=== PATIENT | female | born 1985 | race Caucasian/White ===

== ENCOUNTER 2018-11-12 11:11 | Outpatient (CLI) | payer OTHER ==
[2018-11-12 11:28] VITALS: BP 113/62; PULSE 87; RESP 16; TEMP 97.4
--- NOTE | 2018-12-21 08:48 | P.MSEPDOC ---
Presenting Problems - Arrival Data Date of Arrival on Unit: 11/12/18 Time of Arrival on Unit: 11:11 Mode of Transport: Ambulatory - Complaint OB-Reason for Admission/Chief Complaint: NST Medical History - Information : 4 Para: 2 Term: 2 : 0 Abortions: Spontaneous or Elective: 1 Number of Living Children: 2 - Gestational Age Gestational Age by FAMILIA (wks/days): 40 Weeks and 6 Days Review of Systems - Review of Systems Constitutional: No problems Breast: No problems ENT: No problems Cardiovascular: No problems Respiratory: No problems Gastrointestinal: No problems Genitourinary: No problems Musculoskeletal: No problems Neurological: No problems Skin: No problems Vital Signs - Temperature Temperature: 97.4 F Temperature Source: Temporal Artery Scan - Pulse Right Brachial Pulse Rate: 87 Pulse Assessment Method: Automatic Cuff - Respirations Respiratory Rate: 16 Oxygen Delivery Method: Room Air O2 Sat by Pulse Oximetry: 99 - Blood Pressure Right Arm Blood Pressure: 113/62 Blood Pressure Mean: 79 Blood Pressure Source: Automatic Cuff Medical Screen Scoring (Pre) - Cervical Exam Dilation: Exam Deferred Effacement: Exam Deferred Membranes: Intact - Uterine Contractions Frequency: N/A Duration: N/A Intensity: N/A - Maternal Vital Signs Maternal Temperature: N/A Signs of Preeclampsia: N/A Maternal Respirations: N/A - Pain Assessment Pain Scale Used: Numeric (1 - 10) Pain Intensity: 0 - Assessment Baseline FHR: 130 Heart Rate - NICHD Category: Category I (Normal) = 0 NST: Reactive Position: N/A Station: N/A - Total Score Total Score (Pre): 0 - Level of Risk Level of Risk: Low (0-5) Physician Notification (Pre) - Notification Comment Comment: Routine NST for postdates Physician Notification (Post) - Physician Notified Physician Notified Date: 11/12/18 Physician Notified Time: 11:35 Physician/Practitioner Notified:: Judy New Order Received: Yes (discharge to home) - Notification Comment Comment: routine NST for post dates Disposition - Disposition OB Disposition: LDRP Suite Discharge Date: 11/12/18 Discharge Time: 11:36 I agree with the RN Medical Screening Exam: Yes Risk & Benefit of care provided described in d/c instruction: Yes Diagnosis: 40 WEEKS GESTATION OF
== END 2018-11-12 11:36 | disposition home or self-care (01) ==
LOC: FBPOP 11:11
PROVIDERS: ATTEND Obstetrics & Gynecology
DX: O26.893 Other specified pregnancy related conditions, third trimester (principal); Z3A.40 40 weeks gestation of pregnancy
CPT/HCPCS: 59025; G0463; 99213

== ENCOUNTER 2021-04-02 16:23 | Inpatient (IN) | payer OTHER ==
[2021-04-02] MEDS ORDERED: TERBUTALINE 1 MG/ML VIAL SQ PRN (16:51)
[2021-04-02] MEDS ORDERED: LACTATED RINGERS 1,000 ML IV ONE (16:51)
[2021-04-02 17:18] LABS: Basophils % (A) 0 %; Eosinophils # (A) 0.1 k/uL (0-0.7); Eosinophils % (A) 0 %; HCT 28.1 % (34.0-46.0); Lymphocytes # (A) 1.6 k/uL (1.0-4.8); Lymphocytes % (A) 8 %; MCH 31.9 pg (25.0-35.0); MCHC 35.5 g/dL (31.0-37.0); MCV 89.8 fL (80.0-100.0); Mean Platelet Volume 10.8; Monocytes # (A) 0.8 k/uL (0-1.0); Monocytes % (A) 4 %; Neutrophils # (A) 17.7 k/uL (1.3-7.7); Neutrophils % (A) 87 %; Platelet Count 145 k/uL (150-450); RBC 3.13 m/uL (3.80-5.40); RDW 13.5 % (11.5-15.5); WBC 20.3 k/uL (3.8-10.6)
[2021-04-02 17:52] LABS: Appearance,Urine Cloudy (Clear); Bilirubin,Urine Negative (Negative); Blood,Urine Large (Negative); Color,Urine Red; Glucose,Urine (UA) Negative (Negative); Ketones,Urine Negative (Negative); Leukocyte Esterase,Urine Moderate (Negative); Nitrite,Urine Negative (Negative); PH, Urine 7.5 (5.0-8.0); Protein,Urine 1+ (Negative); RBC,Urine >182 /hpf (0-5); Specific Gravity,Urine 1.017 (1.001-1.035); Squamous Epithelial Cell,Urine 5 /hpf (0-4); Urobilinogen,Urine <2.0 mg/dL (<2.0); WBC,Urine 27 /hpf (0-5)
[2021-04-02] MEDS ORDERED: cefTRIAXone 250 MG VIAL IM STA (17:58)
[2021-04-02] MEDS: LACTATED RINGERS 1,000 ML IV SCH (18:50)
[2021-04-02] MEDS: BETAMET ACET-BETAMETH SOD PHOS 6 MG/ML MDV IM SCH (18:57)
[2021-04-02 19:36] VITALS: BP 102/59; PULSE 86; RESP 16; TEMP 98.3
[2021-04-03] MEDS: LACTATED RINGERS 1,000 ML IV SCH ×3 (02:32→19:20)
--- NOTE | 2021-04-03 08:20 | P.HPOB ---
History of Present Illness H&P Date: 04/02/21 Chief Complaint: Contractions This is a 35-year-old 4 para 3003 woman who is admitted at 35 weeks gestation with worsening contractions. She presented to labor and delivery triage complaining of several hours of lower abdominal pain and possible contractions. She has no previous history of labor and has had an otherwise uncomplicated . During her evaluation in triage she is found to have an elevated white blood cell count as well as evidence of urinary tract infection on urinalysis. She was afebrile however there is some suspicion for possible developing pyelonephritis based on the elevated white blood cell count. She also was noted to be irregularly amrita on every 3-7 minutes. Her cervix is 3 cm dilated and she did have some bloody show as well. The decision was therefore made to admit her for observation for possible developing pyelonephritis and for labor. She did receive a single dose of Rocephin in triage as well as initial dose of betamethasone. Review of Systems All systems: negative Past Medical History Past Medical History: No Reported History History of Any Multi-Drug Resistant Organisms: None Reported Past Surgical History: No Surgical Hx Reported Additional Past Surgical History / Comment(s): Cervical cold knife cone biopsy 2009 Past Anesthesia/Blood Transfusion Reactions: No Reported Reaction Past Psychological History: No Psychological Hx Reported Smoking Status: Current every day smoker Past Alcohol Use History: None Reported Past Drug Use History: None Reported - Past Family History Mother Family Medical History: Cancer Medications and Allergies Home Medications Medication Instructions Recorded Confirmed Type Pnv,Calcium 72/Iron/Folic Acid 1 each PO DAILY 11/16/18 04/02/21 History [ Plus Tablet] Ferrous Sulfate [Iron] 325 mg PO DAILY 04/02/21 04/02/21 History Allergies Allergy/AdvReac Type Severity Reaction Status Date / Time No Known Allergies Allergy Verified 04/02/21 16:40 Exam Vital Signs Temp Pulse Resp BP Pulse Ox 04/02/21 19:33 98.3 F 86 16 102/59 98 04/02/21 16:31 97.5 F L 84 15 100/54 97 Intake and Output 04/02/21 04/03/21 04/03/21 22:59 06:59 14:59 Other: # Voids 1 2 Weight 56.699 kg Results Result Diagrams: 04/02/21 17:05 Abnormal Lab Results - Last 24 Hours (Table) 04/02/21 04/02/21 Range/Units 17:00 17:05 WBC 20.3 H (3.8-10.6) k/uL RBC 3.13 L (3.80-5.40) m/uL Hgb 10.0 L (11.4-16.0) gm/dL Hct 28.1 L (34.0-46.0) % Plt Count 145 L (150-450) k/uL Neutrophils # 17.7 H (1.3-7.7) k/uL Urine Appearance Cloudy H (Clear) Urine Protein 1+ H (Negative) Urine Blood Large H (Negative) Ur Leukocyte Esterase Moderate H (Negative) Urine RBC >182 H (0-5) /hpf Urine WBC 27 H (0-5) /hpf Ur Squamous Epith Cells 5 H (0-4) /hpf Microbiology - Last 24 Hours (Table) 04/02/21 17:00 Urine Culture - Preliminary Urine,Clean Catch Assessment and Plan (1) labor Current Visit: Yes Status: Acute Code(s): O60.00 - LABOR WITHOUT DELIVERY, UNSPECIFIED TRIMESTER SNOMED Code(s): 5429620 (2) Pyelonephritis affecting Current Visit: Yes Status: Acute Code(s): O23.00 - INFECTIONS OF KIDNEY IN , UNSPECIFIED TRIMESTER SNOMED Code(s): 59709861340836
--- NOTE | 2021-04-03 08:26 | P.PN ---
Subjective Progress Note Date: 04/03/21 Principal diagnosis: Contractions SHEENT and reports she slept well overnight. She has irregular and mild lower abdominal cramping. She denies dysuria. She denies heavy vaginal bleeding but does have some spotting with wiping. She has no blood in the urine otherwise. Good movement Objective - Vital Signs Vital signs: Vital Signs Temp 98.3 F 04/02/21 19:33 Pulse 86 04/02/21 19:33 Resp 16 04/02/21 19:33 BP 102/59 04/02/21 19:33 Pulse Ox 98 04/02/21 19:33 Intake & Output 04/02/21 04/03/21 04/03/21 18:59 06:59 18:59 Weight 56.699 kg 56.699 kg Other: # Voids 2 - Exam This is a comfortable appearing female who is visibly gravid. Abdomen is gravid, soft and nontender. No suprapubic pain or CVA tenderness. On pelvic examination the cervix is a tight 3 cm dilated, 70% effaced and the vertex is in the -2 station. There is a small clot on my glove following the exam but no active flow of blood or leakage of fluids. Review of heart rate tracing shows category 1 heart tones. She is amrita approximately every 10 minutes throughout the night. - Labs CBC & Chem 7: 04/02/21 17:05 Labs: Abnormal Lab Results - Last 24 Hours (Table) 04/02/21 04/02/21 Range/Units 17:00 17:05 WBC 20.3 H (3.8-10.6) k/uL RBC 3.13 L (3.80-5.40) m/uL Hgb 10.0 L (11.4-16.0) gm/dL Hct 28.1 L (34.0-46.0) % Plt Count 145 L (150-450) k/uL Neutrophils # 17.7 H (1.3-7.7) k/uL Urine Appearance Cloudy H (Clear) Urine Protein 1+ H (Negative) Urine Blood Large H (Negative) Ur Leukocyte Esterase Moderate H (Negative) Urine RBC >182 H (0-5) /hpf Urine WBC 27 H (0-5) /hpf Ur Squamous Epith Cells 5 H (0-4) /hpf Microbiology - Last 24 Hours (Table) 04/02/21 17:00 Urine Culture - Preliminary Urine,Clean Catch Assessment and Plan (1) labor Current Visit: Yes Status: Acute Code(s): O60.00 - LABOR WITHOUT DELIVERY, UNSPECIFIED TRIMESTER SNOMED Code(s): 0100579 (2) Pyelonephritis affecting Current Visit: Yes Status: Acute Code(s): O23.00 - INFECTIONS OF KIDNEY IN , UNSPECIFIED TRIMESTER SNOMED Code(s): 54869084008248 Plan: 35 year old 4 para 3 at 35-2/7 weeks' gestation with possible p yelonephritis versus labor. She is received. First dose of betamethasone last night and will be due for her second dose this evening. Plan is to observe until second dose of betamethasone. She will be started on oral antibiotics. Her white blood cell count is pending for this morning however she has been afebrile through the night. status currently reassuring by external monitoring. Time with Patient: Less than 30
[2021-04-03 08:30] LABS: Basophils % (A) 0 %; Eosinophils % (A) 0 %; HCT 24.8 % (34.0-46.0); HGB 8.8 gm/dL (11.4-16.0); Lymphocytes # (A) 1.2 k/uL (1.0-4.8); Lymphocytes % (A) 6 %; MCH 32.4 pg (25.0-35.0); MCHC 35.6 g/dL (31.0-37.0); MCV 90.9 fL (80.0-100.0); Mean Platelet Volume 10.8; Monocytes # (A) 0.5 k/uL (0-1.0); Monocytes % (A) 2 %; Neutrophils # (A) 16.9 k/uL (1.3-7.7); Neutrophils % (A) 91 %; Platelet Count 134 k/uL (150-450); RBC 2.73 m/uL (3.80-5.40); RDW 13.6 % (11.5-15.5); WBC 18.6 k/uL (3.8-10.6)
[2021-04-03] MEDS: BETAMET ACET-BETAMETH SOD PHOS 6 MG/ML MDV IM SCH (18:14)
[2021-04-04] MEDS: LACTATED RINGERS 1,000 ML IV SCH (02:59)
[2021-04-04 08:17] LABS: Basophils % (A) 0 %; Eosinophils % (A) 0 %; HCT 24.7 % (34.0-46.0); HGB 8.6 gm/dL (11.4-16.0); Lymphocytes # (A) 1.3 k/uL (1.0-4.8); Lymphocytes % (A) 7 %; MCH 33.1 pg (25.0-35.0); MCV 94.6 fL (80.0-100.0); Mean Platelet Volume 10.7; Monocytes # (A) 0.6 k/uL (0-1.0); Monocytes % (A) 3 %; Neutrophils % (A) 88 %; Platelet Count 118 k/uL (150-450); RBC 2.61 m/uL (3.80-5.40); WBC 18.2 k/uL (3.8-10.6)
--- NOTE | 2021-04-04 08:43 | P.DS ---
Providers Date of admission: 04/03/21 16:32 Expected date of discharge: 04/04/21 Attending physician: Vivek Lynch Primary care physician: Stated None - Discharge Diagnosis(es) (1) labor Current Visit: Yes Status: Acute (2) Pyelonephritis affecting Current Visit: Yes Status: Acute Hospital Course: The patient is a 35 year 4 para 3003 admitted at 35+ weeks by good dating parameters. She is admitted with increasing contractions and a number of hours of lower abdominal pain. She has no history of previous labor or any other complications her . She did while in triage have an elevated white count as well as evidence of urinary tract infection by urinalysis. She denied any fevers at home but was admitted for the contractions with mild cervical change and the possibility of developing pound nephritis given elevated white count. She was initially 6 given one dose of intramuscular Rocephin and started on IV hydration. She additionally was treated with betamethasone which was repeated 24 hours later. Over the course of her stay, her white blood cell count decreased but remained in the range of 18,000. She remained afebrile throughout. She did have occasional and occasionally prolonged variable decelerations while on continuous monitoring for approximately 48 hours which returned to baseline in the had an otherwise reactive NST. During her stay, she was continued with IV Rocephin and received 2 more doses following the i ntramuscular injection in triage. She was deemed stable for discharge on hospital day #3 after approximately 36-40 hours of admission and antibiotics as noted above. Urine culture ultimately did not demonstrate any growth. Contractions stopped relatively quickly with IV hydration and antibiotics. She was discharged home to follow-up in the office in approximate 4 days as previously scheduled after having received both doses of betamethasone and antibiotics as noted above. I have opted not to continue her oral antibiotics as urine culture grew no bacteria. Is counseled to call or return for any changes in activity the, contractions or other signs of labor, fever, pain, or anything else that concerned her. She understood her instructions and agrees to follow up as noted above. Discharge medications included only continue vitamins which she takes at home. Procedures: #1. IV hydration #2. IV antibiotics Plan - Discharge Summary New Discharge Prescriptions: No Action Pnv,Calcium 72/Iron/Folic Acid [ Plus Tablet] 1 each PO DAILY Ferrous Sulfate [Iron] 325 mg PO DAILY Discharge Medication List Pnv,Calcium 72/Iron/Folic Acid [ Plus Tablet] 1 each PO DAILY 11/16/18 [History] Ferrous Sulfate [Iron] 325 mg PO DAILY 04/02/21 [History] Follow up Appointment(s)/Referral(s): Vivek Lynch MD [STAFF PHYSICIAN] - 1 Week Discharge Disposition: HOME SELF-CARE
== END 2021-04-04 09:20 | disposition home or self-care (01) | DRG 832 ==
LOC: FBPOP 16:23 → 4FBP 18:28 → OBSVTOIN 04-03 16:32
PROVIDERS: ADMIT Obstetrics & Gynecology; ATTEND Obstetrics & Gynecology
DX: O60.03 Preterm labor without delivery, third trimester (principal); N12 Tubulo-interstitial nephritis, not specified as acute or chronic; O23.03 Infections of kidney in pregnancy, third trimester; O76 Abnormality in fetal heart rate and rhythm complicating labor and delivery; F17.200 Nicotine dependence, unspecified, uncomplicated; O99.333 Smoking (tobacco) complicating pregnancy, third trimester; Z3A.35 35 weeks gestation of pregnancy
CPT/HCPCS: 59025; 81001; 85025; 87086; 96360; 99214

== ENCOUNTER 2021-04-06 18:35 | Inpatient (IN) | payer OTHER ==
[2021-04-06] MEDS ORDERED: PENICILLIN G POTASSIUM 5,000,000 UNIT in DEXTROSE 5% IN WATER 100 ML IVPB STA ×2 (19:22)
[2021-04-06] MEDS ORDERED: CARBOPROST TROMETHAMINE 250 MCG/ML 1 ML AMP IM PRN (19:22)
[2021-04-06] MEDS ORDERED: LIDOCAINE 0.5% (PF) 5 MG/ML (50 ML SDV) SQ PRN (19:22)
[2021-04-06] MEDS ORDERED: METHYLERGONOVINE 0.2 MG/ML 1 ML AMP IM PRN (19:22)
[2021-04-06] MEDS ORDERED: OXYTOCIN 10 UNIT/ML 1 ML VIAL IM PRN (19:22)
[2021-04-06] MEDS ORDERED: TERBUTALINE 1 MG/ML VIAL SQ PRN (19:22)
--- NOTE | 2021-04-06 19:22 | P.HPOB ---
History of Present Illness H&P Date: 04/06/21 Chief Complaint: Vaginal bleeding This is a 35-year-old 5 para 3013 woman who presents at 35-6/7 weeks' gestation with a gush of bloody fluid at home. She denies abdominal pain however has been having intermittent contractions for over a week. She was recently observed for contractions and possible urinary tract infection. This is a 35 weeks. She did receive prophylactic steroids at that time. Obstetric history is significant for 3 previous term vaginal deliveries and one early miscarriage. Blood type B positive. Upon initial evaluation in labor and delivery triage on amnio sure it swab is positive. She is 3-4 cm dilated 70% effaced and the vertex in the -3 station per RN exam. She has no active vaginal bleeding. She is amrita every 2-4 minutes mildly. heart tones are reassuring. Review of Systems All systems: negative Past Medical History Past Medical History: No Reported History History of Any Multi-Drug Resistant Organisms: None Reported Past Surgical History: No Surgical Hx Reported Additional Past Surgical History / Comment(s): Cervical cold knife cone biopsy 2 010 Past Anesthesia/Blood Transfusion Reactions: No Reported Reaction Smoking Status: Current some day smoker - Past Family History Mother Family Medical History: Cancer Medications and Allergies Home Medications Medication Instructions Recorded Confirmed Type Pnv,Calcium 72/Iron/Folic Acid 1 each PO DAILY 11/16/18 04/06/21 History [ Plus Tablet] Ferrous Sulfate [Iron] 325 mg PO DAILY 04/02/21 04/06/21 History Allergies Allergy/AdvReac Type Severity Reaction Status Date / Time No Known Allergies Allergy Verified 04/02/21 16:40 Exam Intake and Output 04/06/21 04/06/21 04/06/21 06:59 14:59 22:59 Other: Weight 56.699 kg Assessment and Plan (1) Premature rupture of membranes Current Visit: No Status: Acute Code(s): O42.90 - HEENA ROM, 7TH0 BETW RUPT & ONST LABR, UNSP WEEKS OF GEST SNOMED Code(s): 15586207 (2) labor Current Visit: No Status: Acute Code(s): O60.00 - LABOR WITHOUT DELIVERY, UNSPECIFIED TRIMESTER SNOMED Code(s): 8906187 (3) 35 to 36 weeks gestation of Current Visit: Yes Status: Acute Code(s): MKJ6731 - SNOMED Code(s): 421403561 Plan: 35-year-old 5 para 3013 woman who presents with spontaneous rupture of membranes in early labor at 35-6/7 weeks' gestation. She will be admitted and group B strep prophylactic antibiotics will be initiated. Pitocin induction as indicated. status currently reassuring by external monitoring. Anticipate normal spontaneous vaginal delivery.
[2021-04-06] MEDS ORDERED: OXYTOCIN 30 UNITS/500 ML NS 30 UNIT in SALINE 1 500ML.BAG IV SCH (19:30)
[2021-04-06] MEDS: LACTATED RINGERS 1,000 ML IV SCH ×3 (19:54→23:47)
[2021-04-06 21:07] LABS: Basophils % (A) 0 %; Eosinophils # (A) 0.1 k/uL (0-0.7); Eosinophils % (A) 0 %; HCT 25.6 % (34.0-46.0); HGB 9.3 gm/dL (11.4-16.0); Lymphocytes # (A) 1.8 k/uL (1.0-4.8); Lymphocytes % (A) 12 %; MCH 33.1 pg (25.0-35.0); MCHC 36.3 g/dL (31.0-37.0); Mean Platelet Volume 10.4; Monocytes # (A) 0.8 k/uL (0-1.0); Monocytes % (A) 5 %; Neutrophils % (A) 81 %; Platelet Count 143 k/uL (150-450); RBC 2.82 m/uL (3.80-5.40); RDW 13.8 % (11.5-15.5); WBC 14.9 k/uL (3.8-10.6)
[2021-04-06] MEDS ORDERED: SODIUM CHLORIDE 0.9% 100 ML BAG ONE (21:16)
[2021-04-06] MEDS ORDERED: ROPIVACAINE 5MG/ML 20ML VIAL ONE (21:16)
[2021-04-06] MEDS ORDERED: PHENYLEPHRINE-0.9% NACL SYG 1,000 MCG/10 ML SYRINGE ONE (21:16)
[2021-04-06] MEDS ORDERED: fentaNYL (PF) 50 MCG/ML 5 ML AMP ONE (21:16)
[2021-04-07] MEDS ORDERED: PENICILLIN G POTASSIUM 2,500,000 UNIT in DEXTROSE 5% IN WATER 100 ML IVPB SCH ×2
[2021-04-07] MEDS ORDERED: diphenhydrAMINE 25 MG CAP PO PRN (02:03)
[2021-04-07] MEDS ORDERED: BENZOCAINE/MENTHOL SPRAY 1 GM/SPRAY AEROSOL TOPICAL PRN (02:03)
[2021-04-07] MEDS ORDERED: SIMETHICONE 80 MG CHEWABLE PO PRN (02:03)
[2021-04-07] MEDS ORDERED: diphenhydrAMINE 50 MG CAP PO PRN (02:03)
[2021-04-07] MEDS ORDERED: HYDROCORTISONE 2.5% RECTAL CREAM 30 GM TUBE RECTAL PRN (02:03)
[2021-04-07] MEDS ORDERED: ACETAMINOPHEN TAB 325 MG TAB PO PRN (02:03)
[2021-04-07] MEDS ORDERED: LANOLIN CREAM 5 GM TUBE TOPICAL PRN (02:03)
[2021-04-07] MEDS ORDERED: ZOLPIDEM 5 MG TAB PO PRN (02:03)
[2021-04-07] MEDS ORDERED: diphenhydrAMINE 50 MG/ML 1 ML VIAL IVP PRN ×2 (02:03)
--- NOTE | 2021-04-07 02:03 | P.PROBDLV ---
Vaginal Delivery Note - . Vaginal Delivery Note: Findings: Female in the vertex right occiput anterior position with Apgars of 9 at 1 minute and 9 at 5 minutes weighing 4 lbs. 12 oz., 2160 g. Intact perineum. Placenta with evidence of large dark adherent clot consistent with abruption. EBL 100 mL's. Delivery summary: This is a 35 year old 5 para 3013 woman who presented to labor and delivery complaining of vaginal bleeding. She was found to have spontaneous rupture of membranes and was 3 cm dilated. She was mildly and irregularly amrita. She was admitted and group B strep prophylactic antibiotics were initiated. Pitocin augmentation was initiated. scalp electrode was placed for assistance in monitoring. The patient did have a moderate amount of bloody show throughout the duration of her labor. She ultimately received an epidural anesthetic. She did have some bradycardia and late appearing heart rate decelerations following dosing of the epidural produced did resolve with intervention. She ultimately reach complete cervical dilation with strong urge to push. She had moderate to severe variable heart rate decelerations and the lead up to complete dilation. She was repositioned, prepped and draped in the dorsal modified Gabrielle position. With maternal effort 2 the infant did deliver from the right occiput anterior position followed very rapidly by the anterior followed by the posterior shoulders and the rest the onto the field. The nose and mouth were bulb suctioned. The was placed on the maternal abdomen and the placenta spontaneously delivered with a very large approximately 15 cm dark adherent and organized clot. The cord was clamped and cut. Apgars 9 at 1 minute and 9 at 5 minutes and weight 4 lbs. 12 oz. The vagina and perineum were inspected and no lacerations were noted. The uterus was firm however shifted above the umbilicus. Bladder was drained with straight catheter for approximate 500 mL of clear urine. The uterus was then massaged and was noted to be below the level of the umbilicus. EBL 100 mL's. Both mother and infant doing well post delivery in the room.
[2021-04-07] MEDS ORDERED: OXYTOCIN 30 UNITS/500 ML NS 30 UNIT in SALINE 1 500ML.BAG IV SCH (02:15)
[2021-04-07] MEDS: IBUPROFEN 600 MG TAB PO SCH ×4 (02:41→20:15)
[2021-04-07 04:47] VITALS: RESP 16
[2021-04-07] MEDS: LACTATED RINGERS 1,000 ML IV SCH (05:01)
[2021-04-07] MEDS: SENNOSIDES-DOCUSATE SODIUM 1 EACH TAB PO SCH ×2 (08:02→19:26)
[2021-04-08] MEDS: IBUPROFEN 600 MG TAB PO SCH ×3 (00:23→14:29)
[2021-04-08 00:39] VITALS: TEMP 98.2
[2021-04-08 05:47] LABS: Basophils % (A) 0 %; Eosinophils # (A) 0.1 k/uL (0-0.7); Eosinophils % (A) 1 %; HCT 26.3 % (34.0-46.0); Lymphocytes # (A) 2.4 k/uL (1.0-4.8); Lymphocytes % (A) 24 %; MCH 31.7 pg (25.0-35.0); MCV 93.2 fL (80.0-100.0); Mean Platelet Volume 11.4; Monocytes # (A) 0.6 k/uL (0-1.0); Monocytes % (A) 6 %; Neutrophils # (A) 6.8 k/uL (1.3-7.7); Neutrophils % (A) 68 %; Platelet Count 154 k/uL (150-450); RBC 2.83 m/uL (3.80-5.40); RDW 14.9 % (11.5-15.5)
[2021-04-08] MEDS: SENNOSIDES-DOCUSATE SODIUM 1 EACH TAB PO SCH (07:45)
--- NOTE | 2021-04-08 10:45 | P.DS ---
Providers Date of admission: 04/06/21 19:09 Expected date of discharge: 04/08/21 Attending physician: Navya Kim Primary care physician: Vivek Lynch - Discharge Diagnosis(es) (1) Normal spontaneous vaginal delivery Current Visit: No Status: Acute Hospital Course: The patient is a 35-year-old 5 para 3013 who presented at 35-6/7 weeks by good dating parameters. She presented with a gush of bloody fluid at home and was noted to have ongoing contractions. She had received a prophylactic dose of steroids approximately 1 week prior secondary to contractions at that time. She was documented spontaneous rupture of membranes and was admitted for labor with status being reassuring. She had Pitocin augmentation added and had an epidural catheter placed for analgesia. She ultimately process either due to complete where after she pushed to a normal spontaneous vaginal delivery of a viable 4 lbs. 12 oz. baby girl with Apgars of 9 at 1 minute and 9 at 5 minutes. There was evidence of placental abruption with delivery of the placenta almost immediately after delivery of the infant. Her course was unremarkable with vital signs remained stable and her temperature was afebrile throughout. She was deemed stable for discharge on day #1 was discharged home to follow-up in the office in 6 weeks routinely. Discharge instructions included calling for any significantly increased bleeding or foul- smelling lochia, significantly increased fever abdominal pain, perineal complaints, breast complaints, or anything also concerned her. She was additionally instructed to have nothing in the vagina for at least 6 weeks time to include intercourse. She understood her instructions and agrees to follow up as noted above. Discharge medications included only continue vitamins as she has opted to breast-feed. She was otherwise to use [id number] analgesic pain medications. Maternal blood type is B+ and rubella status is immune. Procedures: #1. Pitocin augmentation #2. Epidural analgesia #3. Normal spontaneous vaginal delivery Patient Condition at Discharge: Stable Plan - Discharge Summary New Discharge Prescriptions: No Action Pnv,Calcium 72/Iron/Folic Acid [ Plus Tablet] 1 each PO DAILY Aspirin 81 mg PO DAILY Ferrous Sulfate [Iron] 325 mg PO DAILY Discharge Medication List Pnv,Calcium 72/Iron/Folic Acid [ Plus Tablet] 1 each PO DAILY 11/16/18 [History] Ferrous Sulfate [Iron] 325 mg PO DAILY 04/02/21 [History] Aspirin 81 mg PO DAILY 04/06/21 [History] Follow up Appointment(s)/Referral(s): Vivek Lynch MD [Primary Care Provider] - 6 Weeks Discharge Disposition: HOME SELF-CARE
[2021-04-08 16:22] VITALS: BP 116/58; PULSE 84
== END 2021-04-08 18:50 | disposition home or self-care (01) | DRG 805 ==
LOC: FBPOP 18:35 → 4FBP 19:09
PROVIDERS: ADMIT Obstetrics & Gynecology; ATTEND Obstetrics & Gynecology
PROC: 10E0XZZ Delivery of Products of Conception, External Approach (ICD-10-PCS; principal; 2021-04-07)
DX: O60.14X0 Preterm labor third trimester with preterm delivery third trimester, not applicable or unspecified (principal); O45.93 Premature separation of placenta, unspecified, third trimester; Z37.0 Single live birth; O42.913 Preterm premature rupture of membranes, unspecified as to length of time between rupture and onset of labor, third trimester; F17.200 Nicotine dependence, unspecified, uncomplicated; O76 Abnormality in fetal heart rate and rhythm complicating labor and delivery; O99.334 Smoking (tobacco) complicating childbirth; Z3A.36 36 weeks gestation of pregnancy
CPT/HCPCS: 59025; 84112; 85025; 86850; 86900; 86901; 88307; 99213